=== PATIENT | male | born 2000 | race Caucasian/White ===

== ENCOUNTER 2018-10-31 02:21 | Emergency (ER) | payer SELFPAY ==
[2018-10-31] MEDS ORDERED: morphine CARPU-JECT 4 MG/1 ML DISP.SYRIN IVPUSH ONE ×2 (02:40→03:51)
[2018-10-31] MEDS ORDERED: SODIUM CHLORIDE 1,000 ML IV STA (02:40)
[2018-10-31 02:41] VITALS: PULSE 87; TEMP 97.8; BMI 24.3
[2018-10-31] MEDS ORDERED: ACETAMINOPHEN 1000 MG/100 ML VIAL (NON FORMULARY) IVPB ONE (02:41)
[2018-10-31] MEDS ORDERED: DIPHTH,PERTUSS(ACELL),TET 0.5 ML DISP.SYRIN IM ONE ×2 (02:57→03:07)
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
[2018-10-31 03:04] LABS: BASO % 0.8 % (0-2.0); EOS % 1.4 % (0-4.5); HEMATOCRIT 47.5 % (35.4-49); HEMOGLOBIN 15.6 GM/dL (11.7-16.9); LYMPH % 38.6 % (8-40); MCH 29.1 pg (25.7-33.7); MCHC 32.8 g/dl (32.0-35.9); MEAN CELL VOLUME 88.6 fl (80-96); MONO % 8.5 % (3.8-10.2); NEUT % 50.7 % (42.8-82.8); PLATELET COUNT 209 K/MM3 (134-434); RBC 5.36 M/mm3 (4.00-5.60); RDW 12.9 % (11.9-15.9)
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
[2018-10-31 03:29] LABS: INR 0.93 (0.83-1.09)
[2018-10-31 03:31] LABS: ACTIVATED PTT 27.1 SECONDS (25.2-36.5)
[2018-10-31] MEDS ORDERED: ONDANSETRON 4 MG/2 ML VIAL IVPUSH ONE (03:58)
[2018-10-31] MEDS ORDERED: ONDANSETRON 4 MG/2 ML VIAL ONE (04:01)
[2018-10-31] MEDS ORDERED: morphine SULFATE 4 MG/ML VIAL ONE (04:01)
[2018-10-31 04:02] LABS: ALBUMIN 4.3 g/dl (3.4-5.0); BILIRUBIN,TOTAL 0.4 mg/dL (0.2-1); BLOOD UREA NITROGEN 10.2 mg/dL (7-18); CALCIUM 8.6 mg/dL (8.5-10.1); POTASSIUM 3.7 mmol/L (3.5-5.1); TOT PROT 7.8 g/dl (6.4-8.2)
[2018-10-31 04:25] VITALS: BP 122/59
== END 2018-10-31 04:25 | disposition short-term general hospital (02) ==
LOC: JER 02:21
PROC: 3E0234Z Introduction of Serum, Toxoid and Vaccine into Muscle, Percutaneous Approach (ICD-10-PCS; principal; 2018-10-31)
PROC: 3E033GC Introduction of Other Therapeutic Substance into Peripheral Vein, Percutaneous Approach (ICD-10-PCS; 2018-10-31)
PROC: 3E033NZ Introduction of Analgesics, Hypnotics, Sedatives into Peripheral Vein, Percutaneous Approach (ICD-10-PCS; 2018-10-31)
PROC: 3E033NZ Introduction of Analgesics, Hypnotics, Sedatives into Peripheral Vein, Percutaneous Approach (ICD-10-PCS; 2018-10-31)
PROC: BW40ZZZ Ultrasonography of Abdomen (ICD-10-PCS; 2018-10-31)
PROC: B246ZZZ Ultrasonography of Right and Left Heart (ICD-10-PCS; 2018-10-31)
DX: S21.311A Laceration without foreign body of right front wall of thorax with penetration into thoracic cavity, initial encounter (principal); S27.0XXA Traumatic pneumothorax, initial encounter; W26.8XXA Contact with other sharp object(s), not elsewhere classified, initial encounter; Y93.89 Activity, other specified; Y92.89 Other specified places as the place of occurrence of the external cause; Y99.8 Other external cause status; Y07.9 Unspecified perpetrator of maltreatment and neglect
CPT/HCPCS: 36415; 71045-TC-FY; 71260-TC; 76705-TC; 80053; 85025; 85610; 85730; 86850; 86900; 86901; 90471; 90715; 93308; 96374; 96375; 96376; 99284-25; J0131; J7030